=== PATIENT | female | born 1980 | race Caucasian/White ===

== ENCOUNTER 2018-01-18 20:26 | Emergency (ER) | END 2018-01-18 23:06 | disposition left against medical advice (07) ==

== ENCOUNTER 2018-10-01 00:56 | Emergency (ER) | payer SELFPAY ==
[~2018-10-01] VITALS: Ht 162.6 cm; Wt 105.6 kg
[~2018-10-01 00:56] MED LIST: IBUP800T48 PO
[2018-10-01 00:59] VITALS: Ht 162.6 cm; Wt 105.6 kg
[2018-10-01] MEDS ORDERED: ACETAMINOPHEN 325 MG TAB PO STA (01:33)
[2018-10-01] MEDS ORDERED: SOD CHLORIDE 0.9% 1,000 ML IV STA (01:33)
[2018-10-01] MEDS ORDERED: ONDANSETRON 4 MG INJ IV STA (01:33)
--- NOTE | 2018-10-01 03:57 | ERD ---
ER Documentation Chief Complaint Chief Complaint Pt reports she woke up with lower back and lower abd pain, and blood HPI 38-year-old female presents to ED complaining of vaginal bleeding. She states that she is 7 weeks . She states she is G3, P0 AB 3. She reports that her last menstrual period was August 18, 2018. She thinks that she is 7 weeks . She does not have a current [employer] provider. She came to the ED today because she noticed a little bit of bright pink-colored blood on her toilet paper. She denies any clots. She also reports lower abdominal pain. She denies any other past medical history and does not take medicine on a daily basis. ROS All systems reviewed and are negative except as per history of present illness. Medications Home Meds Active Scripts Ibuprofen* (Motrin*) 800 Mg Tab, 800 MG PO Q6H PRN for PAIN AND OR ELEVATED TEMP, #30 TAB Prov:CLAU SANDOVAL PA-C 10/01/18 Allergies Allergies: Coded Allergies: No Known Drug Allergies (Verified Allergy, Unknown, 01/18/18) PMhx/Soc Medical and Surgical Hx: pt denies Medical Hx, pt denies Surgical Hx History of Surgery: No Anesthesia Reaction: No Hx Neurological Disorder: No Hx Respiratory Disorders: No Hx Cardiac Disorders: No Hx Miscellaneous Medical Probl: No Hx Alcohol Use: No Hx Substance Use: No Hx Tobacco Use: No Smoking Status: Never smoker FmHx Family History: No diabetes Physical Exam Vitals Vital Signs Date Temp Pulse Resp B/P (MAP) Pulse Ox O2 O2 Flow FiO2 Time Delivery Rate 10/01/18 97.0 71 16 124/77 99 Room Air 04:10 (93) 10/01/18 97.7 74 16 144/82 99 00:59 (102) Physical Exam Const: No acute distress Head: Atraumatic Resp: Clear to auscultation bilaterally Cardio: Regular rate and rhythm, Abd: Soft, tenderness across the lower abdomen, non distended. Neur: Awake and alert Psych: Normal Mood and Affect Result Diagram: 10/01/18 0144 10/01/18143 Results 24 hrs Laboratory Tests Test 10/01/18 01:44 10/01/18 01:45 White Blood Count 10.7 10^3/ul Red Blood Count 4.47 10^6/ul Hemoglobin 13.4 g/dl Hematocrit 40.5 % Mean Corpuscular Volume 90.6 fl Mean Corpuscular Hemoglobin 30.0 pg Mean Corpuscular Hemoglobin Concent 33.1 g/dl Red Cell Distribution Width 13.2 % Platelet Count 324 10^3/UL Mean Platelet Volume 10.5 fl Immature Granulocytes % 0.400 % Neutrophils % 56.2 % Lymphocytes % 31.6 % Monocytes % 9.3 % Eosinophils % 2.0 % Basophils % 0.5 % Nucleated Red Blood Cells % 0.0 /100WBC Immature Granulocytes # 0.040 10^3/ul Neutrophils # 6.0 10^3/ul Lymphocytes # 3.4 10^3/ul Monocytes # 1.0 10^3/ul Eosinophils # 0.2 10^3/ul Basophils # 0.1 10^3/ul Nucleated Red Blood Cells # 0.0 10^3/ul Sodium Level 141 mmol/L Potassium Level 4.1 mmol/L Chloride Level 104 mmol/L Carbon Dioxide Level 29 mmol/L Anion Gap 8 Blood Urea Nitrogen 16 mg/dl Creatinine 0.80 mg/dl Est Glomerular Filtrat Rate mL/min > 60 mL/min Glucose Level 107 mg/dl Calcium Level 10.7 mg/dl Total Bilirubin 0.4 mg/dl Direct Bilirubin 0.00 mg/dl Indirect Bilirubin 0.4 mg/dl Aspartate Amino Transf (AST/SGOT) 21 IU/L Alanine Aminotransferase (ALT/SGPT) 30 IU/L Alkaline Phosphatase 72 IU/L Total Protein 8.2 g/dl Albumin 4.6 g/dl Globulin 3.60 g/dl Albumin/Globulin Ratio 1.27 Beta HCG, Quantitative < 2.4 mIU/ml Urine Color YELLOW Urine Clarity SLIGHTLY CLOUDY Urine pH 7.0 Urine Specific [place] 1.010 Urine Ketones NEGATIVE mg/dL Urine Nitrite NEGATIVE mg/dL Urine Bilirubin NEGATIVE mg/dL Urine Urobilinogen NEGATIVE mg/dL Urine Leukocyte Esterase NEGATIVE Axel/ul Urine Microscopic RBC 5 /HPF Urine Microscopic WBC 1 /HPF Urine Hemoglobin 3+ mg/dL Urine Glucose NEGATIVE mg/dL Urine Total Protein NEGATIVE mg/dl Current Medications Medications Dose Sig/Jana Start Time Status Last (Trade) Ordered Route PRN Stop Time Admin Dose Reason Admin Sodium 1,000 ml @ Q1H STAT 10/01/18 DC 10/01/18 Chloride 1,000 mls/hr IV 01:33 01:54 10/01/18 02:32 650 mg ONCE STAT 10/01/18 DC 10/01/18 Acetaminophen PO 01:57 (Tylenol 10/01/18 01:35 Tab) Ondansetron 4 mg ONCE STAT 10/01/18 DC 10/01/18 HCl (Zofran IV 01:57 Inj) 10/01/18 01:35 Procedures/MDM ED COURSE: The patient was stable throughout ED course. I kept the patient informed of laboratory and diagnostic imaging results throughout the ED course. DIAGNOSTIC IMAGING: Read by radiologist. PROCEDURE: ULTRASOUND OB CLINICAL INDICATION: 38-year-old female with vaginal bleeding. TECHNIQUE: Multiple sonographic images of the pelvis were obtained utilizing a transabdominal and endovaginal technique. The images were reviewed on a PACS workstation. COMPARISON: None. FINDINGS: The uterus is heterogeneous and measures 6.7 x 3.7 x 4.7 cm. There are discrete ovoid areas of abnormal echogenicity consistent with fibroids. There is a prominent pedunculated fundal subserosal fibroid measuring 2.6 x 2.2 cm. There is no sonographic evidence for an intrauterine gestation. The endometrial echo complex is within normal limits and measures 6.4 mm. There is no evidence for free fluid. The right ovary has a normal echotexture and measures 3.2 x 1.2 x 2.2 cm. The left ovary has a normal echotexture and measures 3.6 x 2.0 x 2.1 cm. Bilateral ovarian follicular cysts are noted. There is flow identified within the ovaries bilaterally. There is an ill-defined focus of abnormal echogenicity adjacent to the right ovary measuring 13 x 11 mm. IMPRESSION: 1. No sonographic evidence for an intrauterine gestation. 2. Heterogeneous uterus with multiple fibroids and prominent pedunculated fundal subserosal fibroid. 3. Ovoid small focus of abnormal echogenicity within the right adnexal region adjacent to the right ovary and uterus. This may represent a pedunculated fibroid however an ectopic cannot be excluded. .Gaston Bond MD, MD Date Time Electronically viewed and signed by .Gaston Bond MD, on 10/01/2018 03:35 MEDICATIONS GIVEN: Tylenol, Zofran Patient tolerated medication well with no adverse reactions. Patient reported improvement in pain. MEDICAL DECISION MAKING: This is a 38 yr old female who presents with vaginal bleeding. Vital signs were reviewed. Patient was afebrile. Patient was hemodynamically stable. Quantitative b-HCG was negative. CBC showed no evidence of systemic infection or severe anemia. Ultrasound was performed which showed no . Ultrasound showed pedunculated fibroids. At this time I think this is the cause of the patient's pain. I have a much lower clinical concern for ectopic , ruptured ectopic , molar , subchorionic hematoma, spontaneous , incomplete , complete , missed , placental abruption, placental previa, vasa previa, uterine rupture, anembyronic . Patient was given a list of [employer] providers and told to follow-up with [employer] SALES CONSULTANT in the next 1 or 2 days for further care and management. Patient understood and agreed with the plan. All questions were answered. Patient was given strict return to ED precautions if symptoms persist or worsen. Vital signs were reviewed. Patient is afebrile. Patient was not hypoxic. Patient was hemodynamically stable. Patient was told to follow up with primary care for further care and management. PRESCRIPTION: Motrin DISCHARGE: At this time, patient is stable for discharge and outpatient management. I have instructed the patient to follow-up with their primary care physician in 1-2 days. I have discussed with the patient the possibility of needing to see a specialist for further workup and imaging studies if symptoms persist. I have instructed the patient to promptly return to the ER for any new or worsening symptoms including increased pain, fever, nausea, vomiting, weakness or LOC. The patient expressed understanding of and agreement with this plan. All questions were answered. Home care instructions were provided. Disclaimer: Inadvertent spelling and grammatical errors are likely due to EHR/dictation software use and do not reflect on the overall quality of patient care. Also, please note that the electronic time recorded on this note does not necessarily reflect the actual time of the patient encounter. Departure Diagnosis: Primary Impression: Uterine fibroid Uterine leiomyoma location: unspecified location Qualified Codes: D25.9 - Leiomyoma of uterus, unspecified Condition: Fair Patient Instructions: Uterine Fibroids Referrals: COMMUNITY CLINICS YOU HAVE RECEIVED A MEDICAL SCREENING EXAM AND THE RESULTS INDICATE THAT YOU DO NOT HAVE A CONDITION THAT REQUIRES URGENT TREATMENT IN THE EMERGENCY DEPARTMENT. FURTHER EVALUATION AND TREATMENT OF YOUR CONDITION CAN WAIT UNTIL YOU ARE SEEN IN YOUR DOCTORS OFFICE WITHIN THE NEXT 1-2 DAYS. IT IS YOUR RESPONSIBILITY TO MAKE AN APPOINTMENT FOR FOLOW-UP CARE. IF YOU HAVE A PRIMARY DOCTOR --you should call your primary doctor and schedule an appointment IF YOU DO NOT HAVE A PRIMARY DOCTOR YOU CAN CALL OUR PHYSICIAN REFERRAL HOTLINE AT IF YOU CAN NOT AFFORD TO SEE A PHYSICIAN YOU CAN CHOSE FROM THE FOLLOWING [facility] [address] [facility]. [facility] [address] [facility]. [facility] [address] [facility] [facility] [address] [facility]. [facility] [address] [facility]. [facility] [address] [facility]. [facility] YOU HAVE RECEIVED A MEDICAL SCREENING EXAM AND THE RESULTS INDICATE THAT YOU DO NOT HAVE A CONDITION THAT REQUIRES URGENT TREATMENT IN THE EMERGENCY DEPARTMENT. FURTHER EVALUATION AND TREATMENT OF YOUR CONDITION CAN WAIT UNTIL YOU ARE SEEN IN YOUR DOCTORS OFFICE WITHIN THE NEXT 1-2 DAYS. IT IS YOUR RESPONSIBILITY TO MAKE AN APPOINTMENT FOR FOLOW-UP CARE. IF YOU HAVE A PRIMARY DOCTOR --you should call your primary doctor and schedule and appointment IF YOU DO NOT HAVE A PRIMARY DOCTOR YOU CAN CALL OUR PHYSICIAN REFERRAL HOTLINE AT . IF YOU CAN NOT AFFORD TO SEE A PHYSICIAN YOU CAN CHOSE FROM THE FOLLOWING [facility] INSTITUTIONS: [facility] [address] [place] [address] [facility] [address] [place] [address] [facility] + [facility] [place] [place] [address] [employer] [address] [facility] [address] [place] [address] OFFICE FAX , [facility] [address] [place] [address] [address] [facility] [place] [address] [place] [address] DR BAR[place], [facility] [address], [address] [place] [address] [address] DIEZ, [facility] [address] [place] [address] [facility] [address] [place] [address] [address] [facility] [id number] - MIRIAM GRANDE [address] [facility] [place] [address] [address] REID, AMANDA [address] [facility]. [address], [place] [address] [address] PACHECO, [facility] [address] [place], [place] [id number] Additional Instructions: Call your primary care doctor TOMORROW for an appointment during the next 1-2 days.See the doctor sooner or return here if your condition worsens before your appointment time. CLAU SANDOVAL PA-C Oct 01, 2018 03:57
[2018-10-01 04:10] VITALS: BP 124/77; PULSE 71; RESP 16
== END 2018-10-01 04:10 | disposition home or self-care (01) ==
LOC: FTE 00:56
DX: D25.9 Leiomyoma of uterus, unspecified (principal)
CPT/HCPCS: 76801; 76817; 80053; 81001; 84702; 85025; 86900; 86901; J2405; J7030; 36415; 96361; 96374